=== PATIENT | female | born 1975 | race Caucasian/White ===

== ENCOUNTER → 2020-04-20 | Day surgery (SDC) | payer OTHER ==
[~2020-04-20] MED LIST: FLUOXETINE HCL40 MG PO; LISINOPRIL-HCT1 EAC2 PO
[2020-04-20 08:35] LABS: HCT 45.8 % (37.0-47.0); HGB 14.6 g/dl (12.5-16.0); MCH 27.9 pg (25.0-31.0); MCHC 31.9 g/dL (32.0-36.0); MCV 87.4 fL (78.0-100.0); MPV 9.7 fL (6.0-9.5); RBC 5.24 M/uL (4.20-5.40); RDW 14.1 % (11.5-14.0); WBC 12.8 K/uL (4.0-10.5)
[2020-04-20 08:44] LABS: ALBUMIN 3.8 g/dL (3.4-5.0); BILIRUBIN - TOTAL 0.6 mg/dL (0.2-1.0); BUN/CREAT RATIO (CALC) 19.5 RATIO; CREATININE 0.82 mg/dL (0.51-0.95); GLOBULIN (CALCULATION) 4.3 g/dL; POTASSIUM 3.9 mmol/L (3.5-5.1); TOTAL PROTEIN 8.1 g/dL (6.4-8.2)
== END | disposition home or self-care (01) ==
LOC: FAS 07:27
PROVIDERS: Surgery
DX: Z12.11 Encounter for screening for malignant neoplasm of colon (principal); F41.9 Anxiety disorder, unspecified; I10 Essential (primary) hypertension; E66.9 Obesity, unspecified; Z68.43 Body mass index [BMI] 50.0-59.9, adult; Z80.0 Family history of malignant neoplasm of digestive organs
CPT/HCPCS: 36415; 80053; 84703; J2250; J2704; J7120; U0002